=== PATIENT | female | born 1985 | race Caucasian/White ===

== ENCOUNTER 2022-08-04 13:02 | Emergency (ER) | payer OTHER ==
[2022-08-04] MEDS ORDERED: LACTULOSE10 GM/152 PO (15:08)
== END 2022-08-04 15:12 | disposition home or self-care (01) ==
LOC: ER1 13:02
DX: N81.6 Rectocele (principal); K59.09 Other constipation; F17.200 Nicotine dependence, unspecified, uncomplicated
CPT/HCPCS: 81001; 84703; 99283